=== PATIENT | male | born 1985 | race Hispanic/Latino ===

== ENCOUNTER 2019-02-01 07:55 | Emergency (ER) | payer BC, OTHER ==
[2019-02-01 08:01] VITALS: O2SAT 99
[2019-02-01 08:02] VITALS: BMI 25.7
[2019-02-01] MEDS ORDERED: Sodium Chloride 0.9% 1,000 ML IV STA (08:29)
--- NOTE | 2019-02-01 08:42 | ED PDOC ---
Syncope/Near Syncope/Dizziness Time Seen by Provider: 02/01/19 08:00 Chief Complaint (Nursing): Syncope Chief Complaint (Provider): Syncope History Per: Patient History/Exam Limitations: no limitations Onset/Duration Of Symptoms: Hrs Current Symptoms Are (Timing): Gone Now Additional Complaint(s): 33 year old female with a past medical history of hypertension and congenital heart defectwho is presenting to the ED for evaluation of syncopal episode that occurred just prior to arrival. Patient states that he had 2 episodes of loose watery diarrhea associated with syncopal episode and admits that he has had 2 similar experiences in the past. He reports that he was in the shower when he felt like he was going to faint and he said he grabbed onto a wall and reports that he thinks that he did not lose consciousness. 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 He denies any chest pain, shortness of breath, vomiting, or headaches. Of note, patient states that he takes Lisinopril for hypertension. [facility] Past Medical History Reviewed: Historical Data, Nursing Documentation, Vital Signs Vital Signs: Last Vital Signs Temp 98.4 F 02/01/19 08:01 Pulse 94 H 02/01/19 08:07 Resp 14 02/01/19 08:07 BP 129/73 02/01/19 08:01 Pulse Ox 99 02/01/19 08:07 - Medical History PMH: HTN Denies: Chronic Kidney Disease - Surgical History Other surgeries: valve replacement surgery - Family History Family History: States: Unknown Family Hx - Social History Current smoker - smoking cessation education provided: No Alcohol: Social Drugs: Denies - Immunization History Hx Tetanus Toxoid Vaccination: No Hx Influenza Vaccination: No Hx Pneumococcal Vaccination: No - Home Medications Home Medications: Ambulatory Orders Medication Instructions Recorded Cephalexin [Keflex] 500 mg PO QID #20 cap 01/20/16 - Allergies Allergies/Adverse Reactions: Allergies Allergy/AdvReac Type Severity Reaction Status Date / Time No Known Allergies Allergy Verified 01/20/16 18:47 Review of Systems ROS Statement: Except As Marked, All Systems Reviewed And Found Negative Cardiovascular: Negative for: Chest Pain Respiratory: Negative for: Shortness of Breath Gastrointestinal: Positive for: Diarrhea. Negative for: Nausea Neurological: Positive for: Other (syncopal episode ). Negative for: Headache Physical Exam - Reviewed Nursing Documentation Reviewed: Yes Vital Signs Reviewed: Yes - Physical Exam Appears: Positive for: Non-toxic, No Acute Distress Head Exam: Positive for: ATRAUMATIC, NORMAL INSPECTION, NORMOCEPHALIC Skin: Positive for: Normal Color, Warm, DRY Eye Exam: Positive for: EOMI, Normal appearance, PERRL ENT: Positive for: Normal ENT Inspection Neck: Positive for: Normal, Painless ROM Cardiovascular/Chest: Positive for: Murmur (Aortic Arch murmur 2/6 systolic and rep sternal mumur 3/6 systolic with accentuated S2), Other (midline thoracic scar) Respiratory: Positive for: Normal Breath Sounds. Negative for: Respiratory Distress Gastrointestinal/Abdominal: Positive for: Normal Exam, Soft. Negative for: Tenderness Extremity: Positive for: Normal ROM. Negative for: Deformity, Swelling Neurological/Psych: Positive for: Awake, Alert, Normal Tone, Oriented, electronic warfare linguist II- XII (normal ). Negative for: Motor/Sensory Deficits - Laboratory Results Result Diagrams: 02/01/19 08:40 02/01/19 08:40 - ECG ECG: Positive for: Viewed By Me ECG Rhythm: Positive for: Nonspecific Changes (No significant difference when compared to EKG from Dr. Jacob Eaton's EKG from the office. ) O2 Sat by Pulse Oximetry: 99 (RA) Pulse Ox Interpretation: Normal Medical Decision Making Medical Decision Making: Time: 8:29 Plan: --EKG --CMP --Troponin --CBC --IV Fluids 9:[address] Lloyd (Phone #: [phone]), who states that he will look at patient's previous chart and send previous EKG via text. Scribe Attestation: Documented by Luna Barr, acting as a scribe for Mana Vasquez MD. Provider Scribe Attestation: All medical record entries made by the Scribe were at my direction and personally dictated by me. I have reviewed the chart and agree that the record accurately reflects my personal performance of the history, physical exam, medical decision making, and the department course for this patient. I have also personally directed, reviewed, and agree with the discharge instructions and disposition. Disposition - Clinical Impression Clinical Impression: Vasovagal syncope - Patient ED Disposition Is Patient to be Admitted: No Doctor Will See Patient In The: Office Counseled Patient/Family Regarding: Diagnosis, Need For Followup - Disposition Disposition: Routine/Home Disposition Time: 10:00 Condition: STABLE Instructions: Vasovagal Response Forms: [facility] ([facility]), [facility] ED School/Work Excuse - POA Present On Arrival: None
--- NOTE | 2019-02-01 08:52 | CARD ---
APPROVED REPORT Date of service: 02/01/2019 EKG Measurement Heart [id number] <Conclusion> Normal sinus rhythm T wave abnormality, consider lateral ischemia Abnormal ECG
[2019-02-01 09:10] LABS: BASO % 0.1 % (0.0-2.0); EOS # 0.1 K/uL (0.0-0.7); EOS % 0.5 % (0.0-4.0); HEMOGLOBIN 13.5 g/dL (12.0-18.0); LYMPH # 0.4 K/uL (1.0-4.3); LYMPH % 4.6 % (20.0-40.0); MEAN CELL VOLUME 81.8 fl (80.0-94.0); MEAN CORPUSCULAR HEMOGLOBIN 27.2 pg (27.0-31.0); MEAN CORPUSCULAR HGB CONC 33.2 g/dL (33.0-37.0); MONO # 0.5 K/uL (0.0-0.8); MONO % 4.8 % (0.0-10.0); NEUT # 8.5 K/uL (1.8-7.0); PLATELET COUNT 190 K/uL (130-400); RBC 4.97 Mil/uL (4.40-5.90); RED CELL DISTRIBUTION WIDTH 13.7 % (11.5-14.5); WHITE BLOOD COUNT 9.4 K/uL (4.8-10.8)
[2019-02-01 09:15] LABS: ALB/GLOB RATIO 1.5 (1.0-2.1); ALBUMIN 4.7 g/dL (3.5-5.0); ALT/SGPT 37 U/L (21-72); AST/SGOT 33 U/L (17-59); BLOOD UREA NITROGEN 19 mg/dl (9-20); CALCIUM 9.5 mg/dL (8.4-10.2); GFR NON-AFRICAN AMERICAN > 60
[2019-02-01 10:29] LABS: BANDS 2 % (0-2); BASOPHIL 1 % (0-2); LYMPHOCYTE 8 % (20-50); MONOCYTE 3 % (0-10); NEUTROPHIL 86 % (42-75); PLATELET ESTIMATE NORMAL (NORMAL); TOTAL CELLS COUNTED 100
[2019-02-01 10:30] LABS: ANISOCYTOSIS SLIGHT; LARGE PLATELETS PRESENT; OVALOCYTES SLIGHT
[2019-02-01 10:39] VITALS: BP 123/78; PULSE 86; RESP 17; TEMP 98.3
== END 2019-02-01 10:26 | disposition home or self-care (01) ==
LOC: H.ER 07:55
DX: R55 Syncope and collapse (principal); I10 Essential (primary) hypertension; Z95.2 Presence of prosthetic heart valve
CPT/HCPCS: 80053; 84484; 85025; 93005; 96360; 99285; J7030